=== PATIENT | female | born 1985 | race African-American/Black ===

== ENCOUNTER 2022-09-02 12:36 | Emergency (ER) | payer SELFPAY ==
[2022-09-02] MEDS ORDERED: Albuterol Sulfate 2.5 mg/3 ml Neb ONE ×2 (13:04)
[2022-09-02] MEDS ORDERED: Dexamethasone 10 MG/ML VIAL ONE (13:12)
== END 2022-09-02 15:07 | disposition home or self-care (01) ==
LOC: CSHERS 12:36
DX: J45.901 Unspecified asthma with (acute) exacerbation (principal)
CPT/HCPCS: 71045; 94644; 94760; J1100; J7611

== ENCOUNTER 2022-10-17 09:16 | Emergency (ER) | payer SELFPAY ==
[2022-10-17] MEDS ORDERED: Ipratropium/Albuterol 3 ML NEB ONE ×2 (09:26→09:42)
[2022-10-17] MEDS ORDERED: predniSONE 20 MG TAB ONE (09:28)
[2022-10-17] MEDS ORDERED: Budesonide 0.5 MG/2 ML NEB ONE (09:42)
== END 2022-10-17 11:13 | disposition home or self-care (01) ==
LOC: CSHERS 09:16
DX: J45.901 Unspecified asthma with (acute) exacerbation (principal); R06.00 Dyspnea, unspecified
CPT/HCPCS: 99284; J7512; J7620; J7626